=== PATIENT | female | born 1970 | race Caucasian/White ===

== ENCOUNTER 2018-03-01 09:27 | Day surgery (SDC) | payer OTHER ==
[~2018-03-01 09:27] MED LIST: CEFAZOLIN 1 GM INJ
[2018-03-01 10:07] LABS: ADD MAN DIFF? NO
[2018-03-01 10:10] LABS: BASOPHILS % 0.4 % (0.0-2.0); EOSINOPHILS # 0.1 10^3/ul (0.0-0.5); HEMATOCRIT 44.3 % (37.0-47.0); HEMOGLOBIN 14.6 g/dl (12.0-16.0); LYMPHOCYTES # 2.3 10^3/ul (0.8-2.9); LYMPHOCYTES % 32.8 % (15.0-51.0); MEAN CORPUSCULAR HEMOGLOBIN 29.2 pg (29.0-33.0); MEAN CORPUSCULAR VOLUME 88.6 fl (82.0-101.0); MEAN PLATELET VOLUME 9.9 fl (7.4-10.4); MONOCYTE # 0.6 10^3/ul (0.3-0.9); NEUTROPHIL # 3.8 10^3/ul (1.6-7.5); NEUTROPHILS % 55.5 % (39.0-77.0); PLATELET COUNT 348 10^3/UL (140-415); RED CELL DISTRIBUTION WIDTH 13.1 % (11.5-14.5)
[2018-03-01 10:10] LABS: WHITE BLOOD COUNT 6.9 10^3/ul (4.8-10.8)
[2018-03-01 10:20] LABS: ADD UMIC NO; UR ASCORBIC ACID NEGATIVE (NEGATIVE); UR BILIRUBIN (Dip) NEGATIVE (NEGATIVE); UR BLOOD (Dip) NEGATIVE (NEGATIVE); UR CLARITY CLEAR (CLEAR); UR COLOR YELLOW (YELLOW); UR GLUCOSE (Dip) NEGATIVE (NEGATIVE); UR KETONES (Dip) TRACE mg/dL (NEGATIVE); UR LEUKOCYTE ESTERASE (Dip) NEGATIVE Leu/ul (NEGATIVE); UR NITRITE (Dip) NEGATIVE (NEGATIVE); UR SPECIFIC GRAVITY (Dip) 1.023 (1.003-1.030); UR TOTAL PROTEIN (Dip) NEGATIVE (NEGATIVE); UR UROBILINOGEN (Dip) NEGATIVE (NEGATIVE)
[2018-03-01 10:31] LABS: ALANINE AMINOTRANSFERASE 26 IU/L (13-69); ALBUMIN 4.2 g/dl (3.3-4.9); ALKALINE PHOSPHATASE 62 IU/L (42-121); ANION GAP 15 (8-16); ASPARTATE AMINO TRANSFERASE 36 IU/L (15-46); BILIRUBIN,INDIRECT 0.6 mg/dl (0-1.1); BILIRUBIN,TOTAL 0.6 mg/dl (0.2-1.3); CARBON DIOXIDE 25 mmol/L (21-31); CHLORIDE 109 mmol/L (97-110); GLUCOSE 106 mg/dl (70-220); TOTAL PROTEIN 7.7 g/dl (6.1-8.1)
[2018-03-01 10:43] LABS: BLOOD UREA NITROGEN 13 mg/dl (7-20); CALCIUM 10.1 mg/dl (8.4-10.2); CREATININE 0.58 mg/dl (0.44-1.00); POTASSIUM 4.5 mmol/L (3.5-5.1); SODIUM 144 mmol/L (135-144)
[2018-03-01] MEDS ORDERED: MIDAZOLAM 1 MG/ML 2 ML INJ (10:44)
[2018-03-01] MEDS ORDERED: ROPIVACAINE 0.5 % 30 ML VIAL ×2 (10:44→13:52)
[2018-03-01 10:50] LABS: PROTIME 13.3 Sec (11.9-14.9)
[2018-03-01 10:51] LABS: PARTIAL THROMBOPLASTIN TIME 28.5 Sec (25.0-35.0)
[2018-03-01] MEDS ORDERED: ALBUTEROL 0.083% (NEB) 2.5 MG/3 ML AMP HHN (11:00)
[2018-03-01] MEDS ORDERED: OXYCODONE/ACETAMINOPHEN (5/325) TAB PO ×4 (11:00→14:30)
[2018-03-01] MEDS ORDERED: FENTAnyl 50 MCG/ML VIAL IV ×3 (11:00)
[2018-03-01] MEDS ORDERED: HYDROmorphONE 1 MG/5 ML IV SYRINGE IV ×3 (11:00)
[2018-03-01] MEDS ORDERED: MIDAZOLAM 1 MG/ML 2 ML INJ IV (11:00)
[2018-03-01] MEDS ORDERED: KETOROLAC 30 MG INJ IV (11:00)
[2018-03-01] MEDS ORDERED: hydrALAzine 20 MG INJ IV (11:00)
[2018-03-01] MEDS ORDERED: LABETALOL HCL 20MG INJ IV (11:00)
[2018-03-01] MEDS ORDERED: EPHEDrine SULFATE 50 MG/5 ML SYG IV (11:00)
[2018-03-01] MEDS ORDERED: DIPHENHYDRAMINE 50 MG INJ IV (11:00)
[2018-03-01] MEDS ORDERED: MEPERIDINE 25 MG INJ IV (11:00)
[2018-03-01] MEDS ORDERED: PROPOFOL 20 ML (11:24)
[2018-03-01] MEDS ORDERED: LABETALOL HCL 20MG INJ ×2 (11:35→13:15)
[2018-03-01] MEDS ORDERED: DEXAMETHASONE 4 MG/ML 1 ML INJ (11:46)
[2018-03-01] MEDS ORDERED: ONDANSETRON 4 MG INJ (11:47)
[2018-03-01] MEDS ORDERED: FENTAnyl 50 MCG/ML VIAL (13:15)
[2018-03-01] MEDS ORDERED: SUGAMMADEX SODIUM 200 MG/2 ML VIAL IV (13:52)
[2018-03-01] MEDS ORDERED: POVIDONE IODINE 10% 28.4 GM OINT (13:57)
[2018-03-01] MEDS ORDERED: SOD CHLORIDE 0.9% 1,000 ML IV (14:16)
[2018-03-01] MEDS ORDERED: ONDANSETRON 4 MG INJ IV (14:30)
[2018-03-01] MEDS ORDERED: morphine 2 MG INJ IV (14:30)
[2018-03-01] MEDS: ONDANSETRON 4 MG INJ IV (14:30)
[2018-03-01] MEDS: METOCLOPRAMIDE 10 MG INJ IV (15:05)
== END 2018-03-01 17:00 | disposition home or self-care (01) ==
LOC: SDS 09:27
DX: M93.272 Osteochondritis dissecans, left ankle and joints of left foot (principal); M25.772 Osteophyte, left ankle; M65.872 Other synovitis and tenosynovitis, left ankle and foot; E66.09 Other obesity due to excess calories
CPT/HCPCS: 29891; 80053; 81003; 82962; 84703; 85025; 85610; 85730